=== PATIENT | male | born 1970 | race Caucasian/White ===

== ENCOUNTER 2016-06-03 18:16 | Emergency (ER) | payer OTHER ==
[~2016-06-03] VITALS: Ht 177.8 cm; Wt 100.0 kg
[2016-06-03 18:18] VITALS: BP 160/91; PULSE 67; RESP 18; TEMP 98.8; O2SAT 98
[2016-06-03] MEDS ORDERED: PROPOFOL 200 MG/20 ML AMP IV ONE (18:30)
[2016-06-03 18:50] VITALS: O2SAT 99
--- NOTE | 2016-06-03 19:21 | RADRPT ---
EXAM DATE/TIME: 06/03/2016 18:58 [facility] COMPARISON: CHEST ONE VIEW EMPLOYMED ONLY, May 05, 2016, 10:58. INDICATIONS : Post Reduction Right Shoulder MEDICAL HISTORY : None. SURGICAL HISTORY : None. ENCOUNTER: Initial ACUITY: 1 day PAIN SCORE: 0/10 LOCATION: Right shoulder FINDINGS: 2 views of the right shoulder demonstrate satisfactory glenohumeral alignment. Mild degenerative dise ase is seen along the glenoid fossa. There is no evidence of acute fracture. CONCLUSION: Satisfactory joint alignment without evidence of acute fracture. Gutierrez Hicks MD on June 03, 2016 at 19:18 Board Certified Radiologist. This report was verified electronically.
[2016-06-03 19:22] VITALS: BP 135/79; PULSE 65; RESP 20; O2SAT 98
--- NOTE | 2016-06-03 19:25 | PD ---
HPI Chief Complaint: Injury Time Seen by Provider: 18:26 Travel History International Travel<30 days: No Contact w/Intl Traveler<30days: No Traveled to known affect area: No History of Present Illness HPI 45-year-old male presents to the emergency department referred from his primary physician for dislocated right shoulder. 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 After the exercise he had severe right shoulder pain. He went and saw Dr. Ren Guerra ordered an x-ray that showed right shoulder dislocation. No history of previous problems. No medical history. No other complaints. History Past Medical History Medical History: Denies Significant Hx Past Surgical History Surgical History: No Previous Surgery Social History Alcohol Use: Yes (OCC) Tobacco Use: Yes (1/4 PACK A DAY ) Allergies-Medications (Allergen,Severity, Reaction): Coded Allergies: No Known Allergies (Unverified , 06/03/16) Review of Systems Except as stated in HPI: all other systems reviewed are Neg Physical Exam Narrative GENERAL: Well-appearing 45-year-old man, uncomfortable but nontoxic. SKIN: Warm and dry. CARDIOVASCULAR: Warm and well perfused. RESPIRATORY: Normal rate and effort. MUSCULOSKELETAL: Patient guards right shoulder, not wanting to move it at all. He has some decreased sensation over the right deltoid. Radial/ulnar/median nerve functions intact. NEUROLOGICAL: Awake and alert. No gross deficits. Data Data Last Documented VS Vital Signs Date Time Temp Pulse Resp B/P Pulse Ox O2 Delivery O2 Flow Rate FiO2 06/03/16 18:50 99 2.00 06/03/16 18:25 73 Nasal Cannula 06/03/16 18:18 98.8 18 160/91 Orders Propofol 200 Mg/20 Ml Inj (Diprivan 200 (06/03/16 18:30) Shoulder, Limited(2vws) (06/03/16 ) MDM Medical Decision Making Medical Screen Exam Complete: Yes Emergency Medical Condition: Yes Interpretation(s) My review of outpatient x-rays anterior shoulder dislocation of the glenohumeral joint. My review of repeat shoulder x-ray: Successful relocation. Differential Diagnosis Dislocation, contusion, fracture, other Narrative Course Medical decision-making new para 45-year-old presents with right anterior shoulder dislocation, status post successful reduction. Some evidence of decreased sensation over the deltoid. No other obvious neurovascular injury. Recommend close outpatient follow-up with a primary physician. Procedures Procedure Narrative After the risks and benefits were discussed the following procedure was performed: MODERATE SEDATION: The patient was placed on a diagnostic cardiac sonographer and pulse oximetry. An ambu bag and suction was immediately available at bedside. The patient was monitored by the nurse. Oxygen saturation, heart rate and blood pressure were monitored. Procedural sedation was acheived using propofol. The patient was observed until awake and alert. Procedural Sedation time in attendance was 25 minutes. Shoulder reduction: Following informed consent, adequate sedation, right shoulder is reduced easily and accommodation of axial traction as well as abduction and external rotation. Reduction was difficult, and initially was unclear whether successful reduction of been achieved. X-ray confirms successful reduction. Diagnosis Primary Impression: Dislocation of right shoulder joint Qualified Code: S43.004A - Dislocation of right shoulder joint, initial encounter Additional Instructions: Take Aleve as needed for right shoulder pain. Do range of motion exercises twice daily as discussed. After 48 hours she can take off the sling. Follow-up with Dr. Guerra in the next one to 2 days. Return to the emergency department for any worsening pain numbness tingling weakness or any other new or worsening symptoms. Med/Other Pt SpecificInfo: No Change to Meds Disposition: 01 DISCHARGE HOME Condition: Stable Cyrus Deluna MD Jun 03, 2016 19:25
== END 2016-06-03 19:38 | disposition home or self-care (01) ==
LOC: NEPC 18:16
DX: S43.004A Unspecified dislocation of right shoulder joint, initial encounter (principal); W86.8XXA Exposure to other electric current, initial encounter; Y93.89 Activity, other specified; Y99.0 Civilian activity done for income or pay; F17.210 Nicotine dependence, cigarettes, uncomplicated
CPT/HCPCS: 23650; 73030; 99152; 99153